=== PATIENT | male | born 1955 | race Caucasian/White ===

== ENCOUNTER 2019-12-30 05:21 | Day surgery (SDC) | payer OTHER ==
[2019-12-27 14:34] VITALS: BMI 26.5
[2019-12-30] MEDS ORDERED: LIDOCAINE HCL 1%, 10 MG/ML (20ML VIAL) ONE (08:53)
[2019-12-30] MEDS ORDERED: PROPOFOL 20 ML ONE ×2 (09:55)
[2019-12-30] MEDS ORDERED: LIDOCAINE HCL/PF 2% SDV 5ML VIAL ONE (09:55)
[2019-12-30] MEDS ORDERED: ceFAZolin SODIUM 1 GM VIAL ONE (09:55)
[2019-12-30] MEDS ORDERED: MIDAZOLAM HCL 2 MG/2 ML SINGLE DOSE VIAL ONE (09:56)
[2019-12-30] MEDS ORDERED: ceFAZolin SODIUM 1 GM VIAL IVPB ONE (10:09)
[2019-12-30] MEDS ORDERED: LIDOCAINE HCL 1%, 10 MG/ML (20ML VIAL) NR ONE (10:15)
[2019-12-30] MEDS ORDERED: BUPIVACAINE HCL/PF 0.5% (5 MG/ML) 30 ML VIAL IJ ONE (10:15)
[2019-12-30] MEDS ORDERED: IBUPROFEN 800 MG/8 ML IJ IVPB PRN (10:40)
[2019-12-30] MEDS ORDERED: ONDANSETRON 4 MG/2 ML VIAL IVPUSH PRN (10:40)
[2019-12-30] MEDS ORDERED: oxyCODONE HCL 5 MG TABLET PO PRN (10:40)
[2019-12-30] MEDS ORDERED: LACTATED RINGERS SOLUTION 1,000 ML IV SCH (10:45)
[2019-12-30 11:46] VITALS: TEMP 97.5
[2019-12-30 13:12] VITALS: BP 130/70; PULSE 80
== END 2019-12-30 12:45 | disposition home or self-care (01) ==
LOC: JASU-SURG 05:21
PROVIDERS: ATTEND Podiatrist Foot Surgery
PROC: 0JBR0ZZ Excision of Left Foot Subcutaneous Tissue and Fascia, Open Approach (ICD-10-PCS; principal; 2019-12-30 10:15)
DX: D49.2 Neoplasm of unspecified behavior of bone, soft tissue, and skin (principal); L72.0 Epidermal cyst; M1A.9XX1 Chronic gout, unspecified, with tophus (tophi)
CPT/HCPCS: 82962; 88305-TC; 88313-TC; 94760